=== PATIENT | male | born 1980 | race Caucasian/White ===

== ENCOUNTER 2021-09-04 09:12 | Emergency (ER) | payer OTHER, SELFPAY ==
[2021-09-04 09:25] VITALS: BP 131/80; PULSE 89; RESP 18; TEMP 36.7; O2SAT 99; BMI 27.6
--- NOTE | 2021-09-04 09:25 | DI.RAD.S_ITS ---
PROCEDURE: XR ACUTE ABDOMEN SERIES INDICATIONS: Abdominal pain, decreased BM TECHNIQUE: One view chest and two views of the abdomen were acquired. COMPARISON: None. FINDINGS: Surgical changes and devices: None. Chest: Lungs are clear. Heart size is normal. No pleural effusions. No pneumoperitoneum. Abdomen: Bowel gas pattern is normal. A mild to moderate amount of stool is seen within the colon. No suspicious calcifications. Visualized solid organ contours appear normal. Bones: No suspicious bony lesions. IMPRESSION: The bowel gas pattern is nonobstructive. A ljfv-fl-nhtknowq amount of stool seen within the colon. Clear lungs. Dictated by: Joce Hooper M.D. on 09/04/2021 at 8:52 Approved by: Joce Hooper M.D. on 09/04/2021 at 8:53
--- NOTE | 2021-09-04 09:25 | ED_ITS ---
HPI - Abdominal Pain General Chief Complaint: Abdominal Pain Stated Complaint: Severe constipation for over a month Time Seen by Provider: 09/04/21 09:21 History of Present Illness HPI narrative: 41-year-old male daily smoker without chronic medical problems presents with a chief complaint of constipation for the past month. He states that he has had difficulty moving his bowels despite taking various efbd-lxu-mpohvsu laxatives. He denies any change in medications otherwise or dietary change. He does state that he has mild generalized abdominal pain but very little. He denies nausea or vomiting. He has had no fever or chills. He denies any history of abdominal surgeries Related Data Home Medications Medication Instructions Recorded Confirmed gentamicin 0.3 % eye drops EAR-RIGHT ml 04/20/18 04/20/18 Allergies Allergy/AdvReac Type Severity Reaction Status Date / Time No Known Drug Allergies Allergy Verified 09/04/21 09:32 Review of Systems Review of Systems Narrative: GENERAL: Denies chills, fatigue, malaise, fever, sweats. HEENT: Denies sinus pain, ear pain, sore throat, difficulty swallowing, dizziness. RESPIRATORY: Denies dyspnea, cough, wheezing, hemoptysis, sputum. CARDIOVASCULAR: Denies chest pain, palpitations, orthopnea, edema, GASTROINTESTINAL: See HPI : Denies dysuria, frequency, incontinence, hematuria, urinary retention. MUSCULOSKELETAL: denies weakness, joint pain, or bony pain SKIN: Denies rash, skin lesions, or other NEUROLOGIC: Denies weakness, headache, numbness, change in speech, confusion, seizures, incoordination. PSYCHIATRIC: No concerning psychosocial issues. 12 point review of systems is negative except for those stated above Patient History Social History Smoking Status: Current every day smoker (less than 1 pack per month) Smoking Status: Current every day smoker (less than 1 pack per month) Exam Narrative Exam Narrative: GENERAL: [41 year old patient appears stated age. Well-developed patient, in mild distress. HEAD: Atraumatic. Normocephalic. EYES: Pupils equal round and reactive. Extraocular motions intact. No scleral icterus. No injection or drainage. ENT: Nose without bleeding, purulent drainage. Throat without erythema, tonsillar hypertrophy or exudate. Airway patent. NECK: Trachea midline. Non tender CARDIOVASCULAR: Regular rate and rhythm without murmurs, gallops, or rubs. RESPIRATORY: Clear to auscultation. Breath sounds equal bilaterally. No wheezes, rales, or rhonchi. GASTROINTESTINAL: Abdomen soft, non-tender, nondistended. EXTREMITIES: No edema or joint tenderness. BACK: Nontender without deformity or crepitance. No flank tenderness. NEURO: AOx3. SKIN: No rash or erythema of visible areas Initial Vital Signs Initial Vital Signs: Vital Signs Temperature 98.0 F 09/04/21 09:25 Pulse Rate 89 09/04/21 09:25 Respiratory Rate 18 09/04/21 09:25 Blood Pressure 131/80 09/04/21 09:25 Pulse Oximetry 99 09/04/21 09:25 Course Orders Ordered: ED Orders 09/04/21 09:25 XR acute abdomen series Stat 09/04/21 10:17 Complete Blood Count AUTO DIFF Stat Comprehensive Metabolic Panel Stat Discontinued Medications Sodium Chloride (Normal Saline 0.9%) 1,000 mls @ 1,000 mls/hr IV BOLUS ONE Stop: 09/04/21 10:49 Last Infusion: 09/04/21 11:20 Dose: 0 mls/hr Documented by: Admin: 09/04/21 10:34 Dose: 1,000 mls/hr Documented by: RICKEY Vital Signs Vital signs: Vital Signs - 8 hr 09/04/21 09:25 09/04/21 11:23 Temperature 98.0 F Pulse Rate 89 94 H Respiratory Rate 18 15 Blood Pressure 131/80 117/71 Pulse Oximetry 99 98 MDM - Abdominal Pain Lab Data Result diagrams: 09/04/21 10:17 09/04/21 10:17 Labs: Lab Results 09/04/21 09/04/21 Range/Units 10:17 10:17 WBC 3.1 L (4.5-11.0) X10^3/uL RBC 4.64 (4.5-5.9) X10^6/uL Hgb 13.7 (13.5-17.5) g/dL Hct 39.2 L (41-53) % MCV 84.6 (80-100) fL MCH 29.6 (26-34) PG MCHC 35.0 (30-36) % RDW 13.1 (11.6-14.8) % Plt Count 180 (150-400) X10^3/uL Neut % (Auto) 57.0 (50-75) % Lymph % (Auto) 33.1 (25-40) % [place] % (Auto) 7.9 (3-14) % Eos % (Auto) 1.1 L (2-4) % Baso % (Auto) 0.9 (0-2) % Neut # (Auto) 1800 (7322-7517) /uL Lymph # (Auto) 1000 L (5473-0047) /uL [place] # (Auto) 200 (0-900) /uL Eos # (Auto) 0 (0-450) /uL Baso # (Auto) 0 (0-100) /uL Sodium 140 (137-145) mmol/L Potassium 4.0 (3.4-5.1) mmol/L Chloride 105 (98-107) mmol/L Carbon Dioxide 30 (22-32) mmol/L BUN 4 L (9-20) mg/dL Creatinine 0.89 (0.66-1.25) mg/dL Estimated GFR > 60.0 (>60) mL/min BUN/Creatinine Ratio 4.5 L (6-22) Glucose 110 H (70-100) mg/dL Calcium 9.0 (8.4-10.2) mg/dL Total Bilirubin 0.5 (0.2-1.3) mg/dL AST 24 (17-59) IU/L ALT 19 (<50) IU/L Alkaline Phosphatase 64 (38-126) U/L Total Protein 6.9 (6.3-8.2) g/dL Albumin 4.2 (3.5-5.0) g/dL Globulin 2.7 (1.7-4.1) g/dL Albumin/Globulin Ratio 1.6 (1.0-2.8) Point of care testing: Urine Dip Bedside Urine Glucose Negative Bedside Urine Bilirubin - Negative Bedside Urine Ketone - Negative Urine Specific [place] 1.010 Bedside Urine Occult Blood - Negative Bedside Urine pH 6.0 Bedside Urine Protein - Negative Bedside Urine Urobilinogen - Negative Bedside Urine Nitrite - Negative Bedside Urine Leukocytes - Negative Esterase Imaging Data Abdominal x-ray: Radiologist's Impression: [address] [address] XRay Report Signed Patient: Sergio Zuniga MR#: [id number] : 1980 Acct:[id number] Age/Sex: 41 / M Date of Service: 09/04/21 Loc: ED Accession Number: [id number] ?? Procedure: XR acute abdomen series Ordering Provider: Jj Aguilar D.O. PROCEDURE:? XR ACUTE ABDOMEN SERIES ? INDICATIONS:? Abdominal pain, decreased BM ? TECHNIQUE:? One view chest and two views of the abdomen were acquired.? ? COMPARISON:? None. ? FINDINGS:? ? Surgical changes and devices:? None.? ? Chest:? Lungs are clear.? Heart size is normal.? No pleural effusions.? No pneumoperitoneum.? ? Abdomen:? Bowel gas pattern is normal.? A mild to moderate amount of stool is seen within the colon.? No suspicious calcifications.? Visualized solid organ contours appear normal. ? ? Bones:? No suspicious bony lesions.? ? ? IMPRESSION:? The bowel gas pattern is nonobstructive. ? A rztn-fm-dbditcga amount of stool seen within the colon. ? Clear lungs. ? ? Dictated by: Joce Hooper M.D. on 09/04/2021 at 8:52 ? ? Approved by: Joce Hooper M.D. on 09/04/2021 at 8:53 ? [facility] Narrative Medical decision making narrative: Patient has decreased bowel movements but no evidence of obstruction, no pain. He has poor appetite but no vomiting. As a consequence, he is tolerating orals without difficulty, and pain is well controlled. There is no indication for hospitalization or advanced imaging. Extensive discussion with patient regarding outpatient therapies. We discussed following up with General surgery, contact info was given. Return precautions discussed and questions answered to his apparent satisfaction Discharge Plan Departure Patient Disposition: Home Clinical Impression: Constipation Instructions: DI for Constipation Activity Restrictions/Additional Instructions: *You have been diagnosed with [ abdominal pain due to constipation ] *What to do: *Take over the counter medications as directed: 1. Metamucil - bulk forming laxative adds fiber 2. Colace - softens your stool 3. Dulcolax Suppository - stimulates your bowels from the bottom *Follow up with your primary care provider in 2-3 days, call for appoi ntment *Return to ER if you should have any new, worsening or concerning symptoms *Drink plenty of water and eat foods high in fiber *Try to be as active as possible, consider walking your dog daily Prescriptions: No Action gentamicin 0.3 % drops EAR-RIGHT 0RF Referrals: Sherrell Carrion MD [Physician] -
[2021-09-04 10:34] LABS: Add Manual Diff / Slide Review NO; Basophils Absolute Auto 0 /uL (0-100); Basophils Percent Auto 0.9 % (0-2); Eosinophils Absolute Auto 0 /uL (0-450); Eosinophils Percent Auto 1.1 % (2-4); Hematocrit 39.2 % (41-53); Hemoglobin 13.7 g/dL (13.5-17.5); Lymphocytes Absolute Auto 1000 /uL (1100-4500); Lymphocytes Percent Auto 33.1 % (25-40); Mean Corpuscular Hemoglobin 29.6 PG (26-34); Mean Corpuscular Volume 84.6 fL (80-100); Monocytes Absolute Auto 200 /uL (0-900); Monocytes Percent Auto 7.9 % (3-14); Neutrophils Absolute Auto 1800 /uL (1500-7000); Platelet Count 180 X10^3/uL (150-400); Red Blood Cell Count 4.64 X10^6/uL (4.5-5.9); Red Cell Distribution Width 13.1 % (11.6-14.8); White Blood Cell Count 3.1 X10^3/uL (4.5-11.0)
[2021-09-04] MEDS: SODIUM CHLORIDE 0.9% 1,000 ML 1000 ML IV (10:34)
[2021-09-04 10:42] LABS: Alanine Aminotransferase 19 IU/L (<50); Albumin 4.2 g/dL (3.5-5.0); Albumin Globulin Ratio 1.6 (1.0-2.8); Alkaline Phosphatase 64 U/L (38-126); Aspartate Aminotransferase 24 IU/L (17-59); BUN Creatinine Ratio 4.5 (6-22); Bilirubin Total 0.5 mg/dL (0.2-1.3); Blood Urea Nitrogen 4 mg/dL (9-20); Carbon Dioxide 30 mmol/L (22-32); Chloride 105 mmol/L (98-107); Estimated Glomerular Filt Rate > 60.0 mL/min (>60); Globulin 2.7 g/dL (1.7-4.1); Glucose 110 mg/dL (70-100); HEMOLYSIS < 15 (0-50); Sodium 140 mmol/L (137-145); Total Protein 6.9 g/dL (6.3-8.2)
[2021-09-04 11:23] VITALS: BP 117/71; PULSE 94; RESP 15; O2SAT 98
== END 2021-09-04 11:37 | disposition home or self-care (01) ==
PROVIDERS: Emergency Provider Emergency Medicine
DX: K59.00 Constipation, unspecified (principal)
CPT/HCPCS: 36415; 51798; 74022; 80053; 81003; 85025; 99284